=== PATIENT | male | born 1985 | race Caucasian/White ===

== ENCOUNTER 2021-09-18 20:14 | Emergency (ER) | payer MEDICAID ==
[2021-09-18] MEDS ORDERED: Cyclobenzaprine 10 MG Tab PO ONE (20:15)
[2021-09-18] MEDS ORDERED: traMADol 50 MG Tab PO ONE (20:15)
[2021-09-18] MEDS: HYDROmorphone 2 MG/ML SDV IM ONE (20:50)
[2021-09-18] MEDS: hydrOXYzine HCl 50 MG/ML SDV IM ONE (21:02)
== END 2021-09-18 21:13 | disposition home or self-care (01) ==
LOC: FB.ED 20:14
DX: S39.92XA Unspecified injury of lower back, initial encounter (principal); Z88.8 Allergy status to other drugs, medicaments and biological substances; Z72.0 Tobacco use; X50.0XXA Overexertion from strenuous movement or load, initial encounter; Y93.B9 Activity, other involving muscle strengthening exercises
CPT/HCPCS: 96372; 99283; A9270-GY; J1170; J3410

== ENCOUNTER 2021-09-28 13:35 | Emergency (ER) | payer MEDICAID ==
[2021-09-28] MEDS ORDERED: Ketorolac 30 MG/ML SDV IM STA (14:02)
[2021-09-28] MEDS ORDERED: Acetaminophen 500 MG Tab PO STA (14:17)
[2021-09-28] MEDS ORDERED: traMADol 50 MG Tab PO ONE (14:17)
== END 2021-09-28 15:55 ==
LOC: FB.ED 13:35
DX: M54.50 Low back pain, unspecified (principal); Z88.8 Allergy status to other drugs, medicaments and biological substances; Z72.0 Tobacco use; Z86.16 Personal history of COVID-19
CPT/HCPCS: 36415; 74176; 80048; 81001; 85025; 99284; A9270